=== PATIENT | male | born 1985 | race Caucasian/White ===

== ENCOUNTER 2018-07-25 15:07 | Emergency (ER) | payer SELFPAY ==
[~2018-07-25] VITALS: Ht 185.4 cm; Wt 104.5 kg
[2018-07-25 15:13] VITALS: TEMP 98.5
[2018-07-25 15:39] LABS: BASO # 0.1 (0.0-0.2); BASO % 0.5 % (0.0-2.0); EOS # 0.1 (0.0-0.7); EOS % 0.9 % (0-4.0); GRAN # 7.4 (1.4-6.5); GRAN % 64.7 % (42.2-75.2); HEMATOCRIT 38.9 % (42.0-52.0); HEMOGLOBIN 13.5 g/dl (13.5-18.0); LYMPH # 2.4 (1.2-3.4); LYMPH % 20.8 % (20.0-51.0); MEAN CELL VOLUME 84 fl (80.0-100.0); MEAN CORPUSCULAR HEMOGLOBIN 29 pg (27.0-31.0); MEAN CORPUSCULAR HGB CONC 35 g/dl (33.0-37.0); MEAN PLATELET VOLUME 9.7 fl (7.4-10.4); MONO # 1.5 (0.1-0.6); MONO % 12.8 % (1.7-9.3); PLATELET COUNT 320 K/mm3 (130-400); RED BLOOD COUNT 4.66 M/mm3 (4.20-5.60); REDCELL DISTRIBUTION WIDTH-CV 13.2 % (11.5-14.5)
[2018-07-25 16:24] LABS: ALBUMIN 4.2 gm/dL (3.5-5.0); BILIRUBIN,TOTAL 0.8 mg/dL (0.0-1.0); CALCIUM 9.4 mg/dL (8.4-10.2); CREATININE, serum 1.02 mg/dL (0.66-1.25); POTASSIUM 3.2 mmol/L (3.4-5.0); TOTAL PROTEIN 7.5 gm/dL (6.4-8.2)
[2018-07-25 23:31] VITALS: BP 102/60; PULSE 92
== END 2018-07-25 23:26 | disposition home or self-care (01) ==
LOC: COL.ER 15:07
PROVIDERS: Emergency Medicine
DX: F15.10 Other stimulant abuse, uncomplicated (principal); Z86.19 Personal history of other infectious and parasitic diseases
CPT/HCPCS: J1200; J1630; J2060; J7030

== ENCOUNTER 2018-11-28 15:10 | Emergency (ER) | payer SELFPAY ==
[~2018-11-28] VITALS: Ht 182.9 cm; Wt 90.9 kg
[2018-11-28 15:16] VITALS: BP 146/99; TEMP 98
[2018-11-28 17:01] VITALS: PULSE 83
== END 2018-11-28 17:01 | disposition home or self-care (01) ==
LOC: COL.ER 15:10
DX: T16.2XXA Foreign body in left ear, initial encounter (principal); T16.1XXA Foreign body in right ear, initial encounter; F19.10 Other psychoactive substance abuse, uncomplicated; Z86.19 Personal history of other infectious and parasitic diseases

== ENCOUNTER 2019-01-24 21:06 | Emergency (ER) | payer SELFPAY ==
[~2019-01-24] VITALS: Ht 182.9 cm; Wt 81.8 kg
[2019-01-24 21:13] VITALS: BP 136/88; TEMP 98.4
[2019-01-24 21:43] LABS: BASO # 0.1 (0.0-0.2); BASO % 0.6 % (0.0-2.0); EOS # 0.1 (0.0-0.7); EOS % 0.6 % (0-4.0); GRAN # 7.5 (1.4-6.5); GRAN % 57.3 % (42.2-75.2); HEMOGLOBIN 14.6 g/dl (13.5-18.0); LYMPH # 4.4 (1.2-3.4); LYMPH % 33.6 % (20.0-51.0); MEAN CELL VOLUME 84 fl (80.0-100.0); MEAN CORPUSCULAR HEMOGLOBIN 28 pg (27.0-31.0); MEAN CORPUSCULAR HGB CONC 33 g/dl (33.0-37.0); MEAN PLATELET VOLUME 9.2 fl (7.4-10.4); MONO % 7.7 % (1.7-9.3); PLATELET COUNT 357 K/mm3 (130-400); RED BLOOD COUNT 5.26 M/mm3 (4.20-5.60); REDCELL DISTRIBUTION WIDTH-CV 15.3 % (11.5-14.5)
[2019-01-24 21:50] LABS: ALBUMIN 4.7 gm/dL (3.5-5.0); BILIRUBIN,TOTAL 0.4 mg/dL (0.0-1.0); CALCIUM 9.7 mg/dL (8.4-10.2); CREATININE, serum 0.96 (0.66-1.25); POTASSIUM 3.9 mmol/L (3.4-5.0)
[2019-01-24 22:38] LABS: COLLECTION METHOD CLEAN CATCH
[2019-01-24 22:51] LABS: MUCOUS Present /lpf; PH 9 (5-8); SQUAMOUS EPITHELIAL 0-2 /hpf; URINE APPEARANCE Hazy; URINE BACTERIA Rare /hpf; URINE BILIRUBIN Negative (NEGATIVE); URINE BLOOD 1+ (NEGATIVE); URINE COLOR Yellow; URINE GLUCOSE Negative (NEGATIVE); URINE KETONE Trace (NEGATIVE); URINE LEUKOCYTE ESTERASE Negative (NEGATIVE); URINE NITRATE Negative (NEGATIVE); URINE PROTEIN(semi-quant) 1+ (NEGATIVE); URINE RBC >50 /hpf; URINE UROBILINOGEN Negative (NEGATIVE)
[2019-01-24] MEDS ORDERED: ZOFRAN ODT4 MG PO (23:02)
[2019-01-25 00:41] VITALS: PULSE 88
== END 2019-01-25 00:35 | disposition home or self-care (01) ==
LOC: COL.ER 21:06
PROVIDERS: Physician Assistant
DX: N20.0 Calculus of kidney (principal); F17.210 Nicotine dependence, cigarettes, uncomplicated
CPT/HCPCS: J1885; J2270; J2405; J7030; Q9967